=== PATIENT | female | born 1985 | race Two or more races ===

== ENCOUNTER 2017-08-11 19:22 | Inpatient (IN) | payer SELFPAY ==
[2017-08-11] MEDS ORDERED: ONDANSETRON PF 4 MG/2 ML VIAL. IV (19:30)
[2017-08-11] MEDS ORDERED: MAG HYDROX/ALUMINUM HYD/SIMETH 30 ML ORAL.SUSP PO (19:30)
[2017-08-11] MEDS ORDERED: 0.9 % SODIUM CHLORIDE 10 ML DISP.SYRIN. IV (19:30)
[2017-08-11] MEDS ORDERED: LIDOCAINE 1% PF 30 ML VIAL. INJ (19:30)
[2017-08-11] MEDS ORDERED: OXYTOCIN 30 UNIT/500 ML PREMIX 500 ML IV (19:30)
[2017-08-11] MEDS ORDERED: TERBUTALINE 1 MG/ML VIAL. SQ (19:30)
[2017-08-11] MEDS ORDERED: fentaNYL PF VIAL 100 MCG/2 ML VIAL IV (19:30)
[2017-08-11] MEDS ORDERED: ACETAMINOPHEN 325 MG TABLET. PO (19:30)
[2017-08-11] MEDS: IV RINGERS,LACTATED 1000ML 1,000 ML IV (21:04)
[2017-08-11] MEDS: DINOPROSTONE 10 MG SUPP.VAG VG (21:05)
[2017-08-11 21:08] LABS: ADD MAN DIFF? NO
[2017-08-11 21:10] LABS: BASO % 1 % (0-3); EOS # 0.1 x10^3/uL (0.0-0.7); EOS % 1 % (0-3); HEMATOCRIT 39.8 % (36.0-47.0); HEMOGLOBIN 13.5 g/dL (12.0-15.5); LYMPH # 1.3 x10^3/uL (1.0-4.8); LYMPH % 14 % (24-48); MEAN CORPUSCULAR HEMOGLOBIN 28 pg (25-35); MEAN CORPUSCULAR HGB CONC 34 g/dL (31-37); MEAN CORPUSCULAR VOLUME 83 fL (79-100); MONO # 0.8 x10^3/uL (0.0-1.1); MONO % 8 % (0-9); NEUT # 7.2 x10^3uL (1.8-7.7); NEUT % 76 % (31-73); PLATELET COUNT 224 x10^3/uL (140-400); RED CELL DISTRIBUTION WIDTH 15.8 % (11.5-14.5); WHITE BLOOD COUNT 9.5 x10^3/uL (4.0-11.0)
[2017-08-12] MEDS ORDERED: PENICILLIN G K 2,500,000 UNIT in IV DEXTROSE 5% 50 ML IV (00:30)
[2017-08-12] MEDS: IV RINGERS,LACTATED 1000ML 1,000 ML IV ×5 (01:09→20:54)
[2017-08-12] MEDS: PENICILLIN G K 5,000,000 UNIT in IV DEXTROSE 5% 100 ML IV (02:34)
[2017-08-12] MEDS ORDERED: ROPIVacaine 0.2% PF 10 ML VIAL. ×2 (06:00→16:05)
[2017-08-12] MEDS ORDERED: L&D EPIDURAL 50 ML SYRINGE. EP (06:00)
[2017-08-12] MEDS: OXYTOCIN 30 UNIT/500 ML PREMIX 500 ML IV (06:02)
[2017-08-12] MEDS: PENICILLIN G K 2,500,000 UNIT in IV DEXTROSE 5% 50 ML IV ×5 (06:33→23:00)
[2017-08-12] MEDS: BUTORPHANOL 2 MG/ML VIAL. IV (10:55)
[2017-08-12] MEDS ORDERED: L&D EPIDURAL SYRINGE 50 ML EP (16:06)
[2017-08-12] MEDS ORDERED: LIDOCAINE 2% PF Vial for OR 5 ML VIAL. (18:35)
[2017-08-12] MEDS ORDERED: OXYTOCIN 10 UNIT/ML VIAL. ×2 (18:36→19:18)
[2017-08-12] MEDS ORDERED: SODIUM BICARB ADULT 8.4% 50 MEQ/50 ML DISP.SYRIN. (18:36)
[2017-08-12] MEDS ORDERED: EPINEPHrine SYRINGE 1 MG/10 ML SYRINGE (18:36)
[2017-08-12] MEDS ORDERED: ONDANSETRON PF 4 MG/2 ML VIAL. (18:36)
[2017-08-12] MEDS ORDERED: fentaNYL PF VIAL 100 MCG/2 ML VIAL (18:37)
[2017-08-12] MEDS ORDERED: MORPHINE PF 5 MG/10 ML VIAL. (18:37)
[2017-08-12] MEDS: CITRIC ACID/SODIUM CITRATE 30 ML SOLUTION. PO (18:39)
[2017-08-12] MEDS ORDERED: MIDAZOLAM HCL/PF 2 MG/2 ML VIAL. (19:02)
[2017-08-12] MEDS ORDERED: MAG HYDROX/ALUMINUM HYD/SIMETH 30 ML ORAL.SUSP PO (19:45)
[2017-08-12] MEDS ORDERED: ONDANSETRON PF 4 MG/2 ML VIAL. IV (19:45)
[2017-08-12] MEDS ORDERED: 0.9 % SODIUM CHLORIDE 10 ML DISP.SYRIN. IV (19:45)
[2017-08-12] MEDS ORDERED: SIMETHICONE 80 MG TAB.CHEW PO (19:45)
[2017-08-12] MEDS ORDERED: diphenhydrAMINE ORAL ELIXIR 12.5 MG/5 ML ML PO (19:45)
[2017-08-12] MEDS ORDERED: OXYTOCIN 30 UNIT/500 ML PREMIX 500 ML IV (19:45)
[2017-08-12] MEDS ORDERED: ZOLPIDEM 5 MG TABLET. PO (19:45)
[2017-08-13] MEDS: IV RINGERS,LACTATED 1000ML 1,000 ML IV (01:26)
[2017-08-13] MEDS: PENICILLIN G K 2,500,000 UNIT in IV DEXTROSE 5% 50 ML IV ×6 (03:00→23:00)
[2017-08-13] MEDS: KETOROLAC 30 MG/ML INJ. IV (06:14)
[2017-08-13 06:18] LABS: ADD MAN DIFF? NO
[2017-08-13 06:25] LABS: BASO % 0 % (0-3); EOS % 0 % (0-3); HEMATOCRIT 32.8 % (36.0-47.0); HEMOGLOBIN 10.7 g/dL (12.0-15.5); LYMPH # 1.3 x10^3/uL (1.0-4.8); LYMPH % 10 % (24-48); MEAN CORPUSCULAR HEMOGLOBIN 27 pg (25-35); MEAN CORPUSCULAR HGB CONC 33 g/dL (31-37); MEAN CORPUSCULAR VOLUME 84 fL (79-100); MONO # 0.9 x10^3/uL (0.0-1.1); MONO % 7 % (0-9); NEUT # 11.2 x10^3uL (1.8-7.7); NEUT % 83 % (31-73); PLATELET COUNT 166 x10^3/uL (140-400); RED BLOOD COUNT 3.92 x10^6/uL (3.50-5.40); RED CELL DISTRIBUTION WIDTH 15.7 % (11.5-14.5); WHITE BLOOD COUNT 13.5 x10^3/uL (4.0-11.0)
[2017-08-13 07:31] LABS: RPR Non Reactive (Non Reactive)
[2017-08-13] MEDS ORDERED: FERROUS SULFATE 325 MG TABLET. PO (08:00)
[2017-08-13] MEDS: oxyCODONE/APAP 5/325 1 TAB TABLET PO ×2 (11:51)
[2017-08-13] MEDS: IBUPROFEN 800 MG TABLET. PO ×2 (11:52→19:55)
[2017-08-13] MEDS: DOCUSATE SODIUM 100 MG CAPSULE. PO (19:55)
[2017-08-14] MEDS: PENICILLIN G K 2,500,000 UNIT in IV DEXTROSE 5% 50 ML IV ×5 (03:00→19:00)
[2017-08-14] MEDS: IV RINGERS,LACTATED 1000ML 1,000 ML IV ×3 (03:24→19:24)
[2017-08-14] MEDS: IBUPROFEN 800 MG TABLET. PO ×3 (06:44→22:17)
[2017-08-14] MEDS: oxyCODONE/APAP 5/325 1 TAB TABLET PO (17:08)
[2017-08-15] MEDS: DOCUSATE SODIUM 100 MG CAPSULE. PO (08:33)
[2017-08-15] MEDS: IBUPROFEN 800 MG TABLET. PO ×2 (08:34→16:31)
[2017-08-15] MEDS: oxyCODONE/APAP 5/325 1 TAB TABLET PO ×3 (08:34→16:33)
== END 2017-08-15 17:36 | disposition home or self-care (01) | DRG 766 ==
LOC: 3 SO LND 19:22 → 3 NORTH 08-12 22:00
PROC: 10D00Z1 Extraction of Products of Conception, Low, Open Approach (ICD-10-PCS; principal; 2017-08-12)
DX: O69.81X0 Labor and delivery complicated by cord around neck, without compression, not applicable or unspecified (principal); O61.9 Failed induction of labor, unspecified; O48.0 Post-term pregnancy; Z37.0 Single live birth; O62.2 Other uterine inertia; Z3A.40 40 weeks gestation of pregnancy; O99.824 Streptococcus B carrier state complicating childbirth
CPT/HCPCS: 36415; 85025; 86593; 86850; 86900; 86901; J0171; J0690; J1885; J2250; J2270; J2405; J2540; J2590; J2795; J3010; J7120